=== PATIENT | male | born 1960 | race Caucasian/White ===

== ENCOUNTER 2024-11-21 06:21 | Day surgery (SDC) | payer MEDICARE, BC, SELFPAY | END 2024-11-21 14:13 | disposition home or self-care (01) | LOC: GI 06:21 | PROVIDERS: ATTENDING PHYSICIAN Specialist | DX: Z12.11 Encounter for screening for malignant neoplasm of colon (principal); D12.0 Benign neoplasm of cecum; D12.2 Benign neoplasm of ascending colon; D12.3 Benign neoplasm of transverse colon; K57.30 Diverticulosis of large intestine without perforation or abscess without bleeding; Z86.0101 Personal history of adenomatous and serrated colon polyps | CPT/HCPCS: 45385; 45380; 88305 ==

== ENCOUNTER 2024-12-11 05:50 | Day surgery (SDC) | payer MEDICARE, BC, SELFPAY ==
[2024-12-11] VITALS (7 sets, daily range): BP systolic 116–142; BP diastolic 74–93; BMI 27.5
[2024-12-11] MEDS: CELEBREX 200 MG PO (06:27)
[2024-12-11] MEDS: TYLENOL 1000 MG PO (06:28)
[2024-12-11] MEDS: NORMOSOL-R/PLASMALYTE-A 1000 IV (06:28)
== END 2024-12-11 09:45 | disposition home or self-care (01) ==
LOC: SDS 05:50
PROVIDERS: ATTENDING PHYSICIAN Student in an Organized Health Care Education/Training Program
DX: M20.41 Other hammer toe(s) (acquired), right foot (principal); M77.41 Metatarsalgia, right foot; M20.5X1 Other deformities of toe(s) (acquired), right foot
CPT/HCPCS: 28308; 28285; C1713; C1776